=== PATIENT | male | born 1985 | race Caucasian/White ===

== ENCOUNTER → 2017-03-01 | Outpatient (CLI) | payer OTHER ==
--- NOTE | 2017-03-04 15:08 | SLEEPCENT ---
DATE OF PROCEDURE: 03/01/2017 ORDERED BY: Madison Carcamo Nocturnal polysomnography was performed for the titration of pressure therapy in this patient with obstructive sleep apnea syndrome and apnea-hypopnea index of 24. For testing, a [employer] nasal mask of medium size was used and 5 cm of water pressure was applied to the circuit and the lights were extinguished. 7 hours and 49 minutes of data were reviewed. There were 439 minutes of sleep identified. Sleep latency was mildly prolonged at 10 minutes. Rapid eye movement (REM) latency was normal at 95 minutes. Sleep architecture improved. There were 4 REM episodes appreciated. Overall sleep efficiency was 95.4%. The patient's electrocardiogram (EKG) showed a sinus rhythm with an average heart rate of 74 beats per minute. Electroencephalogram (EEG) showed normal waveforms for awake and sleep. Respiratory events were found best palliated with CPAP at a pressure of +6. Significant limb activity persisted despite pressure therapy and limb movement arousal index was 8.1. IMPRESSION: Obstructive sleep apnea syndrome (G47.33). RECOMMENDATION: Nightly use of pressure therapy at 6 cm of water.
== END ==
LOC: M SLEEP 20:26
PROVIDERS: ATTEND Nurse Practitioner Adult Health
DX: G47.33 Obstructive sleep apnea (adult) (pediatric) (principal)

== ENCOUNTER 2017-04-17 16:43 | Emergency (ER) | payer OTHER ==
[2017-04-17] MEDS ORDERED: MELA0.02 PO (16:57)
[2017-04-17] MEDS ORDERED: GABA-283 PO (16:57)
[2017-04-17] MEDS ORDERED: methylPREDNISolone INJ 125 MG/2 ML VIAL (J2930) IV ONE (17:30)
[2017-04-17] MEDS ORDERED: FAMOTIDINE IV BAG 20 MG in APPROPRIATE DILUENT 1 EA IV ONE (17:30)
[2017-04-17 18:15] VITALS: BP 133/79
[2017-04-17] MEDS ORDERED: PEPC1TAB4 PO (18:30)
[2017-04-17] MEDS ORDERED: PRED20TA PO (18:30)
== END 2017-04-17 18:37 | disposition home or self-care (01) ==
LOC: M ED 17:24
DX: K12.2 Cellulitis and abscess of mouth (principal); T78.40XA Allergy, unspecified, initial encounter; X58.XXXA Exposure to other specified factors, initial encounter; Y92.9 Unspecified place or not applicable; Y93.9 Activity, unspecified; Y99.9 Unspecified external cause status; F43.10 Post-traumatic stress disorder, unspecified; F17.200 Nicotine dependence, unspecified, uncomplicated; Z79.899 Other long term (current) drug therapy; Z88.5 Allergy status to narcotic agent; Z88.8 Allergy status to other drugs, medicaments and biological substances
CPT/HCPCS: 96365; 96375; 99284; J2930